=== PATIENT | female | born 1960 | race Caucasian/White ===

== ENCOUNTER 2021-08-30 12:37 | Outpatient (CLI) | payer OTHER, MEDICAID, SELFPAY ==
[~2021-08-30] VITALS: Ht 122.9 cm; Wt 69.9 kg
== END 2021-08-30 15:00 | disposition home or self-care (01) ==
LOC: SLB 12:37 → EDSTATUS 08-31 08:00
PROVIDERS: ATTEND Internal Medicine Gastroenterology
DX: Z01.812 Encounter for preprocedural laboratory examination (principal); Z20.822 Contact with and (suspected) exposure to COVID-19; Z53.8 Procedure and treatment not carried out for other reasons
CPT/HCPCS: 36415

== ENCOUNTER 2021-10-24 07:04 | Day surgery (SDC) | payer OTHER, MEDICAID, SELFPAY ==
[~2021-10-24] VITALS: Ht 152.4 cm; Wt 71.2 kg
[2021-10-24] MEDS ORDERED: MEPERIDINE 100 MG INJ. 100 MG/ML VIAL ONE (07:35)
[2021-10-24] MEDS ORDERED: MIDAZOLAM HCL 5 MG/5 ML VIAL ONE (07:35)
[2021-10-24 13:37] VITALS: BP_SYST 159
== END 2021-10-24 11:05 | disposition home or self-care (01) ==
LOC: SDS 07:04 → SMU 07:05 → SDS 11:05
PROVIDERS: ATTEND Internal Medicine Gastroenterology
DX: R19.4 Change in bowel habit (principal); K29.51 Unspecified chronic gastritis with bleeding; D50.9 Iron deficiency anemia, unspecified; K29.80 Duodenitis without bleeding; E11.9 Type 2 diabetes mellitus without complications; I10 Essential (primary) hypertension; Z20.822 Contact with and (suspected) exposure to COVID-19; Z79.899 Other long term (current) drug therapy
CPT/HCPCS: 36415; 43239; 82962; 87081; 87426; 88305; 88312; 88313; 99152; G0378; J2175; J2250; U0003